=== PATIENT | female | born 1980 | race African-American/Black ===

== ENCOUNTER 2022-05-28 16:30 | Emergency (ER) | payer MEDICAID, OTHER ==
[~2022-05-28] VITALS: Ht 165.1 cm; Wt 120.0 kg
[2022-05-28 16:40] VITALS: BP 144/78
[2022-05-28] MEDS ORDERED: ONDANSETRON 4MG ODT PO STA (17:07)
[2022-05-28 17:34] LABS: BASOPHILS % 0.4 % (0.0-2.0); EOSINOPHILS % 0.1 % (0.0-5.0); HEMATOCRIT. 38.5 % (36.0-48.0); HEMOGLOBIN. 12.3 g/dL (12.0-16.0); LYMPHOCYTES % 8.2 % (20.0-50.0); MEAN CORPUSCULAR HEMOGLOBIN 24.1 pg (28.0-32.0); MEAN CORPUSCULAR VOLUME 75.5 fL (81.0-99.0); MEAN PLATELET VOLUME 8.9 fl (7.4-10.4); MONOCYTES % 2.6 % (2.0-8.0); NEUTROPHILS % 88.7 % (40.0-76.0); PLATELET 495 x1000/uL (130-400); RED BLOOD CELL COUNT 5.09 mill/uL (4.2-5.4); RED CELL DISTRIBUTION WIDTH 17.8 % (11.6-14.6)
[2022-05-28 17:41] LABS: CHLORIDE 108 mEq/L (98-107)
[2022-05-28 17:49] LABS: ETHANOL BLOOD < 10 mg/dL
[2022-05-28 17:53] LABS: HCG SCREEN NEGATIVE
[2022-05-29] MEDS ORDERED: ONDA8TAB13 MT ×2 (11:33)
[2022-05-29] MEDS ORDERED: ONDA4TAB11 PO (11:33)
[2022-05-29] MEDS ORDERED: TRAM-529 MT (11:33)
== END 2022-05-29 08:24 | disposition left against medical advice (07) ==
LOC: ER 16:30
DX: R10.33 Periumbilical pain (principal); R11.2 Nausea with vomiting, unspecified
CPT/HCPCS: 36415; 80053; 80320; 83690; 84703; 85025; 99283; Q0162; G0480

== ENCOUNTER 2022-05-29 05:05 | Emergency (ER) | payer MEDICAID ==
[~2022-05-29] VITALS: Ht 165.1 cm; Wt 120.8 kg
[2022-05-29 05:26] LABS: BASOPHILS % 0.3 % (0.0-2.0); HEMATOCRIT. 37.8 % (36.0-48.0); HEMOGLOBIN. 12.1 g/dL (12.0-16.0); LYMPHOCYTES % 7.9 % (20.0-50.0); MEAN CORPUSCULAR HEMOGLOBIN 24.1 pg (28.0-32.0); MEAN CORPUSCULAR VOLUME 75.2 fL (81.0-99.0); MEAN PLATELET VOLUME 8.7 fl (7.4-10.4); NEUTROPHILS % 89.8 % (40.0-76.0); PLATELET 479 x1000/uL (130-400); RED BLOOD CELL COUNT 5.03 mill/uL (4.2-5.4); RED CELL DISTRIBUTION WIDTH 17.4 % (11.6-14.6)
[2022-05-29 05:32] LABS: CHLORIDE 105 mEq/L (98-107)
[2022-05-29] MEDS ORDERED: FAMOTIDINE 20MG/2ML VIAL IV NR (06:30)
[2022-05-29] MEDS ORDERED: ONDANSETRON HCL 4MG/2ML INJ IV NR (06:30)
[2022-05-29 07:05] LABS: CLARITY URINE CLOUDY (CLEAR); COLOR URINE DARK YELLOW (YELLOW); KETONES URINE 3+ (NEGATIVE); LEUKOCYTE ESTERASE URINE NEGATIVE (NEGATIVE); NITRITE URINE NEGATIVE (NEGATIVE); OCCULT BLOOD URINE 2+ (NEGATIVE); PROTEIN URINE 2+ (NEGATIVE); SPECIFIC GRAVITY URINE 1.034 (1.005-1.030)
[2022-05-29] MEDS ORDERED: MORPHINE SULFATE 4 MG/ML CPJ (NOT FOR IM USE) IV SCH (07:15)
[2022-05-29] MEDS ORDERED: SODIUM CHLORIDE 0.9% 1,000 ML IV ONE (07:15)
[2022-05-29 10:10] VITALS: BP 125/72
[2022-05-29] MEDS ORDERED: ONDA4TAB11 PO (11:33)
[2022-05-29] MEDS ORDERED: TRAM-529 MT (11:33)
[2022-05-29] MEDS ORDERED: ONDA8TAB13 MT ×2 (11:33)
== END 2022-05-29 12:11 | disposition home or self-care (01) ==
LOC: ER 05:05
DX: K52.9 Noninfective gastroenteritis and colitis, unspecified (principal)
CPT/HCPCS: 36415; 80053; 81003; 83690; 84484; 85025; 93005; 96361; 96374; 96375; 99284; J2270; J2405; J3490; J7030; Z7610

== ENCOUNTER 2024-08-18 16:48 | Emergency (ER) | payer MEDICAID ==
[~2024-08-18] VITALS: Ht 175.3 cm; Wt 91.0 kg
[~2024-08-18 16:48] MED LIST: ONDA-239 PO; TRAM-534 MT
[2024-08-18 16:52] VITALS: O2SAT 99
[2024-08-18] MEDS: ONDANSETRON HCL 4MG/2ML INJ IV STA (17:33)
[2024-08-18] MEDS: PANTOPRAZOLE SODIUM 40 MG/VIAL IV STA (17:33)
[2024-08-18] MEDS: SODIUM CHLORIDE 0.9% 1,000 ML IV ONE (17:45)
[2024-08-18] MEDS: DIPHENHYDRAMINE 50MG/ML VIAL IV ONE (17:45)
[2024-08-18] MEDS: HALOPERIDOL LACTATE 5MG/ML VIAL IM ONE (17:45)
[2024-08-18 18:30] LABS: INR 1.0
[2024-08-18 18:32] LABS: CREATININE 0.8 mg/dL (0.6-1.0)
[2024-08-18 18:33] LABS: ETHANOL BLOOD < 10 mg/dL (<10); UREA NITROGEN BLOOD 10 mg/dL (9-23)
[2024-08-18 18:34] LABS: ASPARTATE AMINOTRANSFERASE 151 IU/L (<34); BILIRUBIN DIRECT 0.2 mg/dL (<=3.0)
[2024-08-18 18:35] LABS: BILIRUBIN TOTAL 0.6 mg/dL (0.1-1.0); PROTEIN TOTAL 7.5 g/dL (6.0-8.3)
[2024-08-18 18:44] LABS: HCG SCREEN NEGATIVE
[2024-08-18] MEDS ORDERED: KCL 10MEQ/50ML PREMIX 50 ML IV ONE (19:00)
[2024-08-18 19:36] VITALS: TEMP 36.6
[2024-08-18 19:37] LABS: TROPONIN I HIGH SENSITIVITY 26 ng/L (3.0-34)
[2024-08-18 19:53] LABS: BASOPHILS % 0.2 % (0.0-2.0); EOSINOPHILS % 0.0 % (0.0-5.0); HEMATOCRIT. 41.9 % (36.0-48.0); HEMOGLOBIN. 12.5 g/dL (12.0-16.0); LYMPHOCYTES % 8.5 % (20.0-50.0); MEAN PLATELET VOLUME 8.5 fl (7.4-10.4); MONOCYTES % 3.3 % (2.0-8.0); NEUTROPHILS % 88.0 % (40.0-76.0); PLATELET 351 x1000/uL (130-400); RED BLOOD CELL COUNT 4.78 mill/uL (4.2-5.4); RED CELL DISTRIBUTION WIDTH 14.4 % (11.6-14.6)
[2024-08-18 20:04] VITALS: BP 133/60; PULSE 60; RESP 21; O2SAT 96
[2024-08-18] MEDS ORDERED: MORPHINE SULFATE 2 MG/ML INJ (NOT FOR IM USE) IV ONE (21:15)
== END 2024-08-18 22:00 | disposition left against medical advice (07) ==
LOC: ER 16:48
DX: R10.13 Epigastric pain (principal); R11.2 Nausea with vomiting, unspecified; F12.90 Cannabis use, unspecified, uncomplicated
CPT/HCPCS: 80076; 80048; 80320; 84703; 83880; 83690; 85025; 85610; 84484; 36415; 71045; 93005; 96361; 96372; 96374; 96375; 99285; J1200; J1630; J2405; J2470; J7030; G0480